=== PATIENT | female | born 1940 | race Caucasian/White ===

== ENCOUNTER 2021-09-13 09:15 | Outpatient (CLI) | payer MEDICARE, SELFPAY ==
--- NOTE | ~2021-09-13 | US_ITS ---
EXAMINATION: US arterial duplex LE DATE: 09/13/2021 11:12 INDICATION: Peripheral vascular disease. TECHNIQUE: Multiple grayscale and Doppler ultrasound images of the bilateral lower limb arteries were obtained. COMPARISON: None FINDINGS: In the right lower limb, the peak systolic velocities measure 123 cm/s in common femoral ar samia, 66 cm/s in profunda femoris artery, 101 cm/s in proximal superficial femoral artery, 76 cm/s in mid superficial femoral artery, 64 cm/s in distal superficial femoral artery, 54 cm/s in popliteal a rtery, 70 cm/s in posterior tibial artery, 64 cm/s in peroneal artery, 66 cm/s in anterior tibial art felicia, and 35 cm/s in dorsalis pedis. In the left lower limb, the peak systolic velocities measure 94 cm/s in common femoral artery, 62 cm/ s in profunda femoris, 77 cm/s in proximal superficial femoral artery, 65 cm/s in mid superficial fem oral artery, 54 cm/s in distal superficial femoral artery, 45 cm/s in popliteal artery, 80 cm/s in po sterior tibial artery, 64 cm/s in peroneal artery, 69 cm/s in anterior tibial artery, and 61 cm/s in dorsalis pedis. IMPRESSION: 1. No significant arterial occlusive disease. Reviewed, dictated and finalized at location A.
== END 2021-09-13 09:16 | disposition home or self-care (01) ==
PROVIDERS: Visit Provider Nurse Practitioner Adult Health
DX: I73.9 Peripheral vascular disease, unspecified (principal)
CPT/HCPCS: 93925

== ENCOUNTER 2021-11-14 09:48 | Outpatient (CLI) | payer MEDICARE, SELFPAY ==
--- NOTE | 2021-11-14 11:00 | NEURO_ITS ---
Impression: # Complains of paresthesia in lower extremities with discoloration. # Normal routine nerve conduction study. # Needle/EMG exam neurogenic though no fibrillation. # Clinical correlation recommended, possibility of higher involvement needs to be ruled out. # Problem could very well be related to small fiber neuropathy. Nerve Conduction Studies Anti Sensory Summary Table Stim Site NR Peak (ms) P-T Amp (?V) Site1 Site2 Delta-P (ms) Dist (cm) [place] (m/s) Left Sup Fibular Anti Sensory (Ant Lat Mall) NO RESPONSE 14 cm NR 14 cm Ant Lat Mall 16.0 Right Sup Fibular Anti Sensory (Ant Lat Mall) 14 cm 3.7 4.9 14 cm Ant Lat Mall 3.7 16.0 43 Left Sural Anti Sensory (Lat Mall) Calf 3.5 9.9 Calf Lat Mall 3.5 16.0 46 Right Sural Anti Sensory (Lat Mall) Calf 3.7 5.3 Calf Lat Mall 3.7 16.0 43 Motor Summary Table Stim Site NR Onset (ms) O-P Amp (mV) Site1 Site2 Delta-0 (ms) Dist (cm) [place] (m/s) Left Peroneal Motor (Vastus Med) Ankle 4.2 0.8 Popit Ankle 8.8 40.0 45 Popit 13.0 0.7 Right Peroneal Motor (Vastus Med) Ankle 4.3 1.2 Popit Ankle 8.0 37.0 46 Popit 12.3 1.2 Left Tibial Motor (Abd Guzman Brev) Ankle 4.7 3.6 Knee Ankle 9.8 41.0 42 Knee 14.5 1.7 Right Tibial Motor (Abd Guzman Brev) Ankle 4.5 2.9 Knee Ankle 8.9 37.0 42 Knee 13.4 1.7 F Wave Studies NR F-Lat (ms) L-R F-Lat (ms) Left Peroneal (Mrkrs) (EDB) 51.41 0.00 Right Peroneal (Mrkrs) (EDB) 51.41 0.00 Left Tibial (Mrkrs) (Abd Hallucis) 51.31 0.92 Right Tibial (Mrkrs) (Abd Hallucis) 52.23 0.92 EMG Side Muscle Nerve Root Ins Act Fibs Amp Dur Recrt Comment Right AntTibialis Dp Br Fibular L4-5 Nml Nml Nml Nml Reduced Right Gastroc Tibial S1-2 Nml Nml Nml Nml Reduced Right Fibularis Long Sup Br Fibular L5-S1 Nml Nml Nml Nml Reduced Right Flex Dig Long Tibial L5-S2 Nml Nml Nml Nml Reduced Right Ext Dig Brev Dp Br Fibular L5, S1 Nml Nml Nml Nml Reduced Left AntTibialis Dp Br Fibular L4-5 Nml Nml Nml Nml Reduced Left Gastroc Tibial S1-2 Nml Nml Nml Nml Reduced Left Fibularis Long Sup Br Fibular L5-S1 Nml Nml Nml Nml Reduced Left Flex Dig Long Tibial L5-S2 Nml Nml Nml Nml Reduced Left Ext Dig Brev Dp Br Fibular L5, S1 Nml Nml Nml Nml Reduced MTDD
== END 2021-11-14 09:49 | disposition home or self-care (01) ==
PROVIDERS: Visit Provider Nurse Practitioner Adult Health
DX: R20.2 Paresthesia of skin (principal)
CPT/HCPCS: 95886; 95910

== ENCOUNTER 2022-03-09 09:50 | Outpatient (CLI) | payer MEDICARE, SELFPAY ==
[2022-03-09 17:27] LABS: Appearance Urine Clear (Clear); Bilirubin Urine Negative (Negative); Blood Urine Negative (Negative); Color Urine Yellow (Yellow); Glucose Urine UA Negative (Negative); Ketones Urine Negative (Negative); Leukocyte Esterase Ur Negative LEU/UL (Negative); Nitrate Urine Negative (Negative); Protein Urine 2+ mg/dL (Negative); Specific Grav Ur 1.025 (1.001-1.035); Urobilinogen Urine 0.2 mg/dL (<2.0); pH Urine 5.5 (5.0-9.0)
[2022-03-09 17:40] LABS: CRP 0.8 mg/dL (<1.0)
[2022-03-09 17:43] LABS: Mucus Urine Rare /lpf; RBC Urine 0-2 /hpf (0-2); WBC Urine 0-3 /hpf
[2022-03-09 17:51] LABS: Erythrocyte Sedimentation Rate 17 mm/hr (0-20)
[2022-03-09 17:53] LABS: Add Urine Microscopic? YES
== END 2022-03-09 09:51 | disposition home or self-care (01) ==
LOC: ANHGOSHLAB 09:51
PROVIDERS: PCP Emergency Medicine; Visit Provider Emergency Medicine
DX: R30.0 Dysuria (principal); L53.9 Erythematous condition, unspecified
CPT/HCPCS: 36415; 81001; 85652; 86140

== ENCOUNTER → 2022-03-09 10:10 | Outpatient (CLI) | payer MEDICARE, SELFPAY ==
--- NOTE | ~2022-03-09 | XR_ITS ---
EXAMINATION: XR tibia fibula LT 2V DATE: 03/09/2022 10:37 INDICATION: Left ankle lumps with skin discolorations. TECHNIQUE: 2 views of the left tibia and fibula were obtained. COMPARISON: None. FINDINGS: Bone alignment is normal. No fracture. There is mild left knee osteoarthritis. IMPRESSION: 1. Mild left knee osteoarthritis. Reviewed, dictated and finalized at location A. K TRIMMER
--- NOTE | ~2022-03-09 | XR_ITS ---
EXAMINATION: XR tibia fibula RT 2V DATE: 03/09/2022 10:37 INDICATION: Right ankle lumps with skin discolorations. TECHNIQUE: 2 views of the right tibia and fibula were obtained. COMPARISON: None. FINDINGS: Bone alignment is normal. No fracture. There is mild right knee osteoarthritis. IMPRESSION: 1. Mild right knee osteoarthritis. Reviewed, dictated and finalized at location A. MACHINE OPERATOR
== END ==
PROVIDERS: PCP Emergency Medicine; Visit Provider Emergency Medicine
DX: M79.89 Other specified soft tissue disorders (principal); M17.0 Bilateral primary osteoarthritis of knee
CPT/HCPCS: 73590

== ENCOUNTER → 2022-03-14 09:06 | Outpatient (CLI) | payer MEDICARE, SELFPAY ==
--- NOTE | ~2022-03-14 | MR_ITS ---
MRI of the brain Clinical History: Headache, paresthesia Technique: Axial and sagittal T1-weighted images were acquired. These were followed by axial T2-weigh bernabe, diffusion weighted, gradient, and FLAIR images. Findings: There is no acute infarct, intracranial hemorrhage, or mass lesion. There are mild chronic white matter changes in the periventricular white matter bilaterally. Ventricles and subarachnoid spaces are unremarkable. Orbits are unremarkable. Paranasal sinuses and m astoid air cells are clear. Major intracranial flow voids are intact. Sagittal midline structures are intact. IMPRESSION: No acute abnormality. Minimal chronic white matter changes. Reviewed, dictated and finalized at location . E BREAKER
== END ==
PROVIDERS: PCP Emergency Medicine; Visit Provider Emergency Medicine
DX: R51.9 Headache, unspecified (principal); R20.2 Paresthesia of skin
CPT/HCPCS: 70551

== ENCOUNTER 2022-11-16 09:23 | Outpatient (CLI) | payer MEDICARE, SELFPAY ==
[2022-11-16 17:15] LABS: Appearance Urine Turbid (Clear); Bacteria Urine None Seen /hpf; Bilirubin Urine Negative (Negative); Blood Urine 1+ (Negative); Color Urine Yellow (Yellow); Glucose Urine UA Negative (Negative); Ketones Urine Negative (Negative); Leukocyte Esterase Ur 3+ LEU/UL (Negative); Nitrate Urine Negative (Negative); Non Pathogenic Casts 0-2; Protein Urine Negative (Negative); RBC Urine 0-2 /hpf (0-2); Specific Grav Ur 1.006 (1.001-1.035); Squamous Epithelial Cell Urine None seen /hpf (Few); Urobilinogen Urine 0.2 mg/dL (<2.0); WBC Urine >100 /hpf
[2022-11-16 17:31] LABS: Add Urine Microscopic? YES
== END 2022-11-16 09:24 | disposition home or self-care (01) ==
LOC: ANHGOSHLAB 09:24
PROVIDERS: PCP Emergency Medicine; Visit Provider Emergency Medicine
DX: R30.0 Dysuria (principal)
CPT/HCPCS: 81001; 87077; 87086; 87088; 87186

== ENCOUNTER 2022-12-13 08:32 | Outpatient (CLI) | payer MEDICARE, SELFPAY ==
[2022-12-13 19:01] LABS: Appearance Urine Clear (Clear); Bacteria Urine None Seen /hpf; Bilirubin Urine Negative (Negative); Blood Urine Negative (Negative); Color Urine Yellow (Yellow); Glucose Urine UA Negative (Negative); Ketones Urine Negative (Negative); Leukocyte Esterase Ur Trace LEU/UL (Negative); Nitrate Urine Negative (Negative); Non Pathogenic Casts 0-2; Protein Urine Negative (Negative); RBC Urine 0-2 /hpf (0-2); Specific Grav Ur 1.009 (1.001-1.035); Squamous Epithelial Cell Urine None seen /hpf (Few); Urobilinogen Urine 0.2 mg/dL (<2.0); WBC Urine 0-5 /hpf; pH Urine 7.5 (5.0-9.0)
[2022-12-13 19:05] LABS: Add Urine Microscopic? YES
[2022-12-13 19:20] LABS: Basophils Percent Auto 0.5 % (0.2-1.2); Eosinophils Absolute Auto 0.1 K/mm3 (0-0.3); Eosinophils Percent Auto 1.6 % (0-4.4); Hematocrit 41.2 % (37.0-47.0); Hemoglobin 13.3 g/dL (12.0-15.0); Lymphocytes Absolute Auto 1.34 K/mm3 (0.9-3.2); Lymphocytes Percent Auto 31.2 % (18.3-44.2); Mean Corpuscular HGB Conc 32.3 g/dl (32-36); Mean Corpuscular Hemoglobin 31.5 pg (26-34); Mean Corpuscular Volume 97.6 fl (80-100); Mean Platelet Volume 10.6 fl (7.4-10.4); Monocytes Absolute Auto 0.4 K/mm3 (0.1-0.6); Monocytes Percent Auto 9.6 % (2.6-8.5); Neutrophils Absolute Auto 2.5 K/mm3 (1.3-6.7); Neutrophils Percent Auto 57.1 % (45.5-73.1); Platelet Count Result 227 k/mm3 (150-375); Red Blood Count 4.22 M/mm3 (4.2-5.4); Red Cell Distribution Width 13.6 % (11.5-14.5); White Blood Count 4.3 K/mm3 (4.5-10.0)
[2022-12-14 08:28] LABS: Hemoglobin A1C 5.3 % (<5.7)
== END 2022-12-13 08:33 | disposition home or self-care (01) ==
PROVIDERS: PCP Emergency Medicine; Visit Provider Emergency Medicine
DX: N39.0 Urinary tract infection, site not specified (principal)
CPT/HCPCS: 36415; 80053; 81001; 83036; 85025

== ENCOUNTER 2023-01-09 09:08 | Outpatient (CLI) | payer MEDICARE, SELFPAY ==
--- NOTE | ~2023-01-09 | MM_ITS ---
EXAMINATION: MM screening javad LT w lela HISTORY: Screening left mammogram, history of right mastectomy TECHNIQUE: Craniocaudal and mediolateral oblique 3-D tomosynthesis images were obtained and synthetic 2-D images were generated. CAD analysis was submitted and interpreted. COMPARISON: 12/08/2021 BREAST PARENCHYMAL COMPOSITION: There are scattered areas of fibroglandular density. FINDINGS: No suspicious mass, calcification, or architectural distortion are identified to suggest ma lignancy. There has been no suspicious interval change. IMPRESSION: 1. No mammographic evidence of malignancy. 2. Recommend routine screening mammography while the patient remains in good health. BI-RADS Category 1: Negative Reviewed, dictated and finalized at location A. NICAL SALES DIRECTOR IMPRESSION: 1. No mammographic evidence of malignancy. 2. Recommend routine screening mammography while the patient remains in good he alth. BI-RADS Category 1: Negative
== END 2023-01-09 09:09 | disposition home or self-care (01) ==
LOC: ANHIMG 09:13
PROVIDERS: PCP Emergency Medicine; Visit Provider Emergency Medicine
DX: Z12.31 Encounter for screening mammogram for malignant neoplasm of breast (principal)
CPT/HCPCS: 77063; 77067

== ENCOUNTER → 2023-02-11 14:26 | Outpatient (CLI) | payer MEDICARE, SELFPAY ==
--- NOTE | ~2023-02-11 | XR_ITS ---
[id number] 02/11/2023 15:18 Indication: Right knee pain Procedure: 2 views right knee Comparison: No prior studies for comparison. Findings: There is moderate tricompartment osteoarthritis. No fracture or traumatic malalignment. No significant joint effusion. No foreign bodies. Impression: 1: Moderate tricompartment osteoarthritis of the right knee. Reviewed, dictated and finalized at location A. OPERATIONS COORDINATOR Impression: 1: Moderate tricompartment osteoarthritis of the right knee.
== END ==
PROVIDERS: PCP Family Medicine; Visit Provider Nurse Practitioner Family
DX: M17.11 Unilateral primary osteoarthritis, right knee (principal)
CPT/HCPCS: 73560

== ENCOUNTER 2023-02-26 14:06 | Outpatient (CLI) | payer MEDICARE, SELFPAY ==
--- NOTE | ~2023-02-26 | US_ITS ---
EXAMINATION: US venous doppler [facility] DATE: 02/26/2023 14:38 INDICATION: Left lower limb swelling TECHNIQUE: Grayscale ultrasound images without and with compression and Doppler ultrasound images of the left lower extremity veins were obtained. COMPARISON: None. FINDINGS: The visualized portions of left common femoral vein, profunda (deep) femoral vein, femoral vein, popl iteal vein, peroneal veins, posterior tibial veins, gastrocnemius vein and greater saphenous vein out flow are patent. Soft tissue swelling with increased echogenicity of the subcutaneous fat with inters persed hypoechoic reticulated pattern consistent with subcutaneous edema at the region of concern at the lateral left lower leg. IMPRESSION: 1. No deep venous thrombosis in the left lower limb. Reviewed, dictated and finalized at location A. MORSE INTERCEPT TECHNICIAN
== END 2023-02-26 14:07 | disposition home or self-care (01) ==
PROVIDERS: PCP Family Medicine; Visit Provider Nurse Practitioner Family
DX: M79.89 Other specified soft tissue disorders (principal)
CPT/HCPCS: 93971

== ENCOUNTER 2023-04-24 10:00 | Outpatient (RCR) | payer MEDICARE, SELFPAY ==
--- NOTE | 2023-02-27 16:49 | PTOPEVAL1 ---
Assessment and note entered by Jhonny Morataya, PT, DPT Evaluation Information Assessment Status Evaluation Diagnosis R knee pain Onset 1 month Subjective Information Pt reports R knee pain, she states it feels like her knee will freeze and it gets hard to move. She states about a month ago she was bending over to pick something up and it froze and it feels like it is still stuck. Reported Pain Level Pain Score 1: Self Report Assessment PT Clinical Summary Anali presents to therapy today for her initial evaluation with a diagnosis of R knee pain. Today she demonstrates gait deviations, decreased knee ROM, decreased BLE strength, and decreased functional mobility. Skilled therapy services are indicated to address the deficits noted above, to manage pain, and to improve functional mobility. Plan of Care Interventions Electrical Stimulation,Gait Training,Hot Pack/Cold Pack,Manual Therapy,Neuro Re-education,Patient/ Caregiver Educati,Therapeutic Activities, Therapeutic Exercise PT Services Indicated Yes Treatment Frequency and 2x/wk for 8 visits Duration These treatments will address the objective and functional deficits as defined above. The patient will be advanced safely and appropriately in order for the patient to progress towards his/her prior level of function. Additional exercises will be introduced and as well as a comprehensive home exercise program upon discharge, if needed, ?to ensure carryover of functional gains achieved in the clinic. This treatment plan has been reviewed and agreement upon by the patient.
--- NOTE | 2023-02-27 16:49 | OPREHPOC ---
Outpatient Therapy Plan of Care This is a Multidisciplinary Plan of Care that may contain components documented by all disciplines (PT, OT, and ST.) PT Problem 1 PT Problem #1 Knowledge Deficit PT Goal 1 Goal Pt to be IND with issued HEP Target Visit 8 PT Problem 2 PT Problem #2 Pain PT Goal 1 Goal Pt to report knee pain no greater than 3/10 in the last week . Target Visit 8 PT Goal 2 Goal Pt to report 75% improvement in overall symptoms. Target Visit 8 PT Problem 3 PT Problem #3 Impaired Gait PT Goal 1 Goal Pt to improve 2 min walk distance from 375ft to 450ft Target Visit 8 PT Goal 2 Goal Pt to ambulate without deviations Target Visit 8 PT Problem 4 PT Problem #4 Impaired Functional Mobil PT Goal 1 Goal Pt to improve 5xSTS time from 27s to 15s. Target Visit 8 PT Goal 2 Goal Pt to demonstrate sit to stand transfer with equal weight distribution Target Visit 8
--- NOTE | 2023-03-04 12:28 | PCPTNOTE ---
Patient called to cancel secondary to in the family.
--- NOTE | 2023-03-06 14:30 | PCPTNOTE ---
Patient canceled due to family emergency.
--- NOTE | 2023-03-13 09:40 | PCPTNOTE ---
Patient cancelled secondary to ill.
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
--- NOTE | 2023-03-27 11:57 | PTOPPROG ---
Assessment and note entered by Jhonny Morataya, PT, DPT Evaluation Information Assessment Status Progress Diagnosis R knee pain Onset 1 month Subjective Information Pt states overall her knee is doing much better, she has been also to sleep in bed for the last 2 nights. Assessment PT Clinical Summary Anali presents to therapy today for her progress report following 6 visits of skilled therapy to treat her diagnosis of R knee pain. Today she demonstrates improve LE strength, gait pattern, gait speed, and LE ROM. She is progressing well towards her therapy goals with active knee flexion still being the most limited at 95 deg. Her HEP was updated this date and she decided to work on her HEP for a month and will follow up in a month. Plan of Care Interventions Electrical Stimulation,Gait Training,Hot Pack/Cold Pack,Manual Therapy,Neuro Re-education,Patient/ Caregiver Educati,Therapeutic Activities, Therapeutic Exercise PT Services Indicated Yes Treatment Frequency and follow up in 1 month Duration These treatments will address the objective and functional deficits as defined above. The patient will be advanced safely and appropriately in order for the patient to progress towards his/her prior level of function. Additional exercises will be introduced and as well as a comprehensive home exercise program upon discharge, if needed, ?to ensure carryover of functional gains achieved in the clinic. This treatment plan has been reviewed and agreement upon by the patient.
--- NOTE | 2023-04-24 10:49 | PTOPDC ---
Assessment and note entered by Jhonny Morataya, PT, DPT Evaluation Information Assessment Status Discharge Diagnosis R knee pain Onset 1 month Subjective Information Pt states her knee has still been doing good in the last month or so. She states her is getting a little bit of clicking sounds but it is not painful. She states she has been walking 1-2 miles and biking 2-3 miles at the gym, 2-3 times a week . She states she increased her biking distance yesterday so is a little sore today. Reported Pain Level Pain Score 3: Self Report Assessment PT Clinical Summary Anali presents to therapy today for her progress report following 7 visits of skilled therapy to treat her diagnosis of R knee pain. Today she reports and demonstrates improved functional mobility and independence. She has met or is progressing well towards her therapy goals and no longer requires skilled services, she will be discharged at this time. Plan of Care PT Services Indicated No
== END 2023-04-24 11:08 | disposition home or self-care (01) ==
LOC: ANHGOSHPT 10:00
PROVIDERS: PCP Family Medicine; Visit Provider Nurse Practitioner Family
DX: M25.561 Pain in right knee (principal)
CPT/HCPCS: 97110; 97112; 97161; 97530

== ENCOUNTER 2023-06-20 11:42 | Emergency (ER) | payer MEDICARE, SELFPAY ==
[2023-06-20 11:58] VITALS: BP 105/76; PULSE 77; RESP 16; TEMP 36.8; O2SAT 100
--- NOTE | 2023-06-20 11:59 | ED.GENADULT ---
HPI - General Adult General Chief complaint: Extremity Problem,Nontraumatic Stated complaint: L LEG REDNESS Source: patient, RN notes reviewed and old records reviewed Mode of arrival: ambulatory Limitations: no limitations History of Present Illness HPI narrative: [age] year female presents to [facility] with complaints pain and redness to lower left leg. Patient states noted area last p.m. an area is worsening. Patient has not taken anything or tried anything for pain or redness. Related Data Allergies Allergy/AdvReac Type Severity Reaction Status Date / Time No Known Allergies Allergy Verified 02/11/23 13:48 Review of Systems Constitutional: Constitutional: Reports no additional constitutional complaints, Denies body ache(s), Denies chills, Denies fatigue, Denies fever(s) and Denies headache(s) Eyes: Eyes: Reports no additional eye complaints and Denies blurry vision ENT: Reports system reviewed and no additional complaints, except as documented, Denies vertigo, Denies dizziness, Denies ear discharge, Denies otalgia, Denies facial pain, Denies headache(s), Denies nasal congestion, Denies nasal discharge, Denies sinus pain, Denies sinus pressure and Denies sore throat Cardiovascular: Cardiovascular: Reports no additional cardiovascular complaints, Denies chest pain, Denies chest pain at rest, Denies rapid heart rate and Denies dyspnea Respiratory: Respiratory: Reports no additional respiratory complaints, Denies chest congestion, Denies cough, Denies pain on inspiration, Denies pain with cough and Denies dyspnea Gastrointestinal: Gastrointestinal: Denies abdominal pain, Denies diarrhea, Denies nausea and Denies vomiting Integumentary/Breasts: Skin/Breast: Reports change in pigmentation, Denies rash and Reports skin pain Neurologic: Reports system reviewed and no additional complaints, except as documented, Denies vertigo, Denies dizziness and Denies headache(s) Endocrine: Endocrine: Denies fatigue PMFSH Past Medical History Medical History Breast CA Cancer Osteoporosis Family History Family History Other Alcohol abuse Cerebrovascular accident Depression Heart disease Hypertension Social History Social History Social History: Caffeine- coffee Smoking status: Never smoker Second hand tobacco smoke exposure: No Alcohol intake: never Substance use: never Substance use type: does not use Lack of Transportation: No Lack of Food: Never True Current Housing: I Have Housing Concerned About Future Housing: No Difficulty Paying Gas/Electric Bills: No Difficulty Paying for Meds: No Currently Unemployed: No Difficulty w/ Childcare or Family Care: No Occupation/Education: retired Gender identity (if verbalized by the patient): Female Sexual Orientation (if Verbalized by the Patient): Straight or Heterosexual Comments At the time of my signature, I reviewed and agree with the nursing past medical, surgical, social, and family history. There is no relevant family history pertinent to the patient complaint. Exam Const: General: cooperative, healthy appearing, no acute distress and well nourished Nutritional Appearance: well nourished Orientation/consciousness: patient oriented x3 Limitations: no limitations HENMT: Head: normal to inspection and normocephalic Ears: external ears normal Face/Nose/Sinus: normal facial exam Face and sinus: normal facial exam Mouth: Yes Normal oral and palatal mucosa present, Yes oropharynx normal and Yes moist mucous membranes Eyes: General: appearance normal, both eyes and all related structures Sclera: sclerae normal Pupils: Equal, round and reactive pupils present Resp: Effort & Inspection: normal respiratory effort, able to speak in complete sentences, no audible wheezes,
== END 2023-06-20 12:17 | disposition home or self-care (01) ==
PROVIDERS: Emergency Provider Registered Nurse; PCP Emergency Medicine
DX: L03.116 Cellulitis of left lower limb (principal); L02.416 Cutaneous abscess of left lower limb; M81.0 Age-related osteoporosis without current pathological fracture; Z85.3 Personal history of malignant neoplasm of breast
CPT/HCPCS: 99213; G0463

== ENCOUNTER 2023-10-07 10:17 | Emergency (ER) | payer MEDICARE, SELFPAY ==
--- NOTE | 2023-10-07 10:24 | ED.EXTPRO ---
HPI - Extremity Problem General Chief complaint: Skin/Abscess/Foreign Body Stated complaint: Cellulitis Left Leg Time Seen by Provider: 10/07/23 11:00 Source: patient Mode of arrival: ambulatory Limitations: no limitations History of Present Illness HPI Narrative: Anali is an 83-year-old female patient presenting to the clinic today with complaints of possible left lower leg cellulitis. She reports she has had cellulitis in the past and was seen here and given cephalexin and that resolved her symptoms. She tried to get into her doctor today however her doctor is not in the office. She reports that symptoms started yesterday. [place] like she had fever last night. Is having pain to the left medial leg with redness and swelling. Has taken Tylenol for the pain and fever. She is afebrile in the clinic today. Related Data Home Medications Medication Instructions Recorded Confirmed sulfamethoxazole 800 1 tablet PO BID 10/07/23 10/07/23 mg-trimethoprim 160 mg tablet Allergies Allergy/AdvReac Type Severity Reaction Status Date / Time No Known Allergies Allergy Verified 10/07/23 10:55 Review of Systems Review of Systems: Pertinent positives per HPI. Patient denies any rash, headache, visual changes, dizziness, cough, runny nose, sore throat, shortness of breath, chest pain, palpitations, nausea, vomiting, diarrhea, constipation, abdominal pain, or any urinary issues. [facility] Past Medical History Medical History Breast CA Cancer Osteoporosis Family History Family History Other Alcohol abuse Cerebrovascular accident Depression Heart disease Hypertension Social History Social History Social History: Caffeine- coffee Smoking status: Never smoker Second hand tobacco smoke exposure: No Alcohol intake: never Substance use: never Substance use type: does not use Lack of Transportation: No Lack of Food: Never True Current Housing: I Have Housing Concerned About Future Housing: No Difficulty Paying Gas/Electric Bills: No Difficulty Paying for Meds: No Currently Unemployed: No Difficulty w/ Childcare or Family Care: No Occupation/Education: retired Gender identity (if verbalized by the patient): Female Sexual Orientation (if Verbalized by the Patient): Straight or Heterosexual Comments At the time of my signature, I reviewed and agree with the nursing past medical, surgical, social, and family history. There is no relevant family history pertinent to the patient complaint. Exam Narrative: General: Well-developed, well nourished, in no apparent distress Head: Normocephalic, atraumatic. Cardio: Regular rate and rhythm, s1 and s2 normal, no murmur appreciated. Resp: Clear to auscultation bilaterally, no rhonchi, rales, wheezing or rubs. Musculoskeletal: No deformity, redness and swelling to the left lower medial leg just above the ankle with erythema and tender to palpation, no obvious wound or drainage, mild nonpitting edema, grossly normal range of motion, muscle strength strong and equal, peripheral pulse strong, no cyanosis, normal gait and station Course Course Emergency Course: Portions of this record may have been created with voice recognition software. Level of Care: Express Care Visit Vital Signs Vital signs: Vital signs reviewed MDM - Extremity (Nontraumatic) MDM Narrative Medical decision making narrative: At the time of visit patient is resting comfortably on the exam table. Patient appears to be nontoxic. Plan: I suspect patient has cellulitis to the left lower leg. Prescription for cephalexin is sent being sent to the pharmacy. Patient is currently on Bactrim for UTI. Will have her continue that as well. Supportive measures were discussed with the patient and they vo
[2023-10-07 10:55] VITALS: BP 121/64; PULSE 79; RESP 16; TEMP 35.8; O2SAT 100
== END 2023-10-07 11:13 | disposition home or self-care (01) ==
PROVIDERS: Emergency Provider Nurse Practitioner Family; PCP Emergency Medicine
DX: L03.116 Cellulitis of left lower limb (principal); M81.0 Age-related osteoporosis without current pathological fracture; Z85.3 Personal history of malignant neoplasm of breast
CPT/HCPCS: 99213; G0463

== ENCOUNTER 2023-10-14 13:54 | Outpatient (NON) | payer MEDICARE, SELFPAY | END 2023-10-14 13:55 | disposition home or self-care (01) | PROVIDERS: PCP Student in an Organized Health Care Education/Training Program; Visit Provider Student in an Organized Health Care Education/Training Program | DX: N39.0 Urinary tract infection, site not specified (principal) | CPT/HCPCS: 87086 ==

== ENCOUNTER 2023-12-23 08:12 | Outpatient (CLI) | payer MEDICARE, SELFPAY ==
[2023-12-23 14:22] LABS: Basophils Percent Auto 0.7 % (0.2-1.2); Eosinophils Absolute Auto 0.1 K/mm3 (0-0.3); Eosinophils Percent Auto 1.7 % (0-4.4); Hematocrit 42.1 % (37.0-47.0); Hemoglobin 13.3 g/dL (12.0-15.0); Immature Granulocyte Absolute 0.01 K/mm3 (0.00-0.031); Immature Granulocyte Percent A 0.2 % (0-0.5); Mean Corpuscular HGB Conc 31.6 g/dl (32-36); Mean Corpuscular Hemoglobin 31.3 pg (26-34); Mean Corpuscular Volume 99.1 fl (80-100); Mean Platelet Volume 10.2 fl (7.4-10.4); Monocytes Absolute Auto 0.5 K/mm3 (0.1-0.6); Monocytes Percent Auto 11.3 % (2.6-8.5); Neutrophils Absolute Auto 2.8 K/mm3 (1.3-6.7); Neutrophils Percent Auto 60.1 % (45.5-73.1); Platelet Count Result 221 k/mm3 (150-375); Red Blood Count 4.25 M/mm3 (4.2-5.4); Red Cell Distribution Width 13.5 % (11.5-14.5); White Blood Count 4.6 K/mm3 (4.5-10.0)
[2023-12-23 15:36] LABS: Alanine Aminotransferase 18 U/L (6-35); Albumin Level 4.1 g/dL (3.5-5.1); Alkaline Phosphatase 90 U/L (38-126); Anion Gap 6 mmol/L (4-12); Aspartate Amino Transferase 47 U/L (14-36); Bilirubin,Total 0.3 mg/dL (0.2-1.3); Blood Urea Nitrogen 15 mg/dL (7-17); Carbon Dioxide 30 mmol/L (22-30); Chloride 104 mmol/L (98-107); Estimated Glomerular Filt Rate > 60; Glucose 87 mg/dL (65-110); Potassium 4.3 mmol/L (3.4-5.0); Sodium 140 mmol/L (137-145)
[2023-12-23 16:30] LABS: Vitamin B12 > 1000.0 pg/mL (239-931)
== END 2023-12-23 08:13 | disposition home or self-care (01) ==
PROVIDERS: PCP Student in an Organized Health Care Education/Training Program; Visit Provider Student in an Organized Health Care Education/Training Program
DX: R53.83 Other fatigue (principal); E55.9 Vitamin D deficiency, unspecified
CPT/HCPCS: 36415; 80053; 82306; 82607; 84443; 85025

== ENCOUNTER 2024-02-18 10:25 | Outpatient (CLI) | payer MEDICARE, SELFPAY ==
--- NOTE | ~2024-02-18 | MM_ITS ---
EXAMINATION: MM screening javad LT w lela HISTORY: Screening TECHNIQUE: Craniocaudal and mediolateral oblique 3-D tomosynthesis images were obtained and synthetic 2-D images were generated. CAD analysis was submitted and interpreted. COMPARISON: 12/08/2021 BREAST PARENCHYMAL COMPOSITION: The breasts are heterogeneously dense, which may obscure small masses . FINDINGS Stable parenchymal pattern without suspicious microcalcifications, architectural distortion, discrete masses or significant asymmetry. IMPRESSION: 1. No mammographic evidence of malignancy. 2. Recommend routine screening mammography in one year. BI-RADS Category 1: Negative Reviewed, dictated and finalized at location A. BORING CREW CHIEF
--- NOTE | ~2024-02-18 | DEXA_ITS ---
Bone Density Report Name: DIMA DURANT Age: 83 Sex: Female Ethnicity: White Date of : 1940 Indication: postmenopausal; screening for osteoporosis; height loss; Referring Provider: ANNA CALLES Study: Bone densitometry was performed. Exam Date: February 18, 2024 Accession number: [id number] Bone Density: Region BMD T-score Z-score Classification AP Spine(L1-L4) 0.754 -2.7 0.1 Osteoporosis Femoral Neck (Left) 0.517 -3.0 -0.6 Osteoporosis Total Hip (Left) 0.673 -2.2 -0.1 Osteopenia Femoral Neck (Right) 0.562 -2.6 -0.2 Osteoporosis Total Hip (Right) 0.713 -1.9 0.3 Osteopenia Femoral Neck Mean 0.539 -2.8 -0.4 Osteoporosis Total Hip Mean 0.693 -2.0 0.1 Osteopenia World Health Organization criteria for BMD impression classify patients as: Normal (T-score at or above -1.0), Osteopenia (T-score between -1.0 and -2.5), or Osteoporosis (T-score at or below -2.5). 10-year Fracture Risk: FRAX not reported because: Some T-score for Spine Total or Hip Total or Femoral Neck at or below -2.5 Clinical Information Provided by Patient: Has used the following medications: Vitamin D, Calcium Patient maximum height was 64 Menopause Age: 52 No regular weight bearing exercise Does not regularly consume dairy products Drinks caffeinated beverages Onset of menses at age 14 Number of children 2 Impression: The patient has osteoporosis, based on the Left Femoral Neck T-score. Discussion: INCREASED RISK OF FRACTURE. BONE DENSITY IS UNDESIRABLY LOW AT ONE OR MORE SKELETAL SITES, CONSISTENT WITH POSTMENOPAUSAL OSTEOPOROSIS. This patient's lowest T-score meets the World Health Organization's (WHO) criteria for osteoporosis at one or more sites (T-score -2.5 or below). In untreated patients, the risk of osteoporotic fracture increases approximately two-fold for each 1.0 SD decrease in T-score. Low bone density is not the only risk factor for fracture; also consider factors such as patient's age, frailty or poor health, risk of falling, risk of injury, previous osteoporotic fracture, family history of osteoporosis, cigarette smoking, low body weight, etc. Not everyone with low bone mineral density has osteoporosis; osteomalacia and other metabolic bone disorders should also be considered. Patients who have osteoporosis should be evaluated for specific diseases and conditions (secondary causes) that may cause or contribute to bone loss. The [place] Association of Clinical Endocrinologists (AACE) and National Osteoporosis Foundation (NOF) recommend pharmacologic intervention for all postmenopausal women whose T-score is in this range. The patient should follow a healthful lifestyle (good nutrition with adequate calcium and vitamin D, and appropriate weight-bearing exercise). Follow-Up: Consider a repeat BMD and Vertebral Fracture Assessment (VFA) exam in 2 years or sooner if medically necessary, to reassess this patient's status. Reported by: DEVYN on 02/18/2024 10:45:00 AM. Reviewed, dictated and finalized at location A.
--- OUTSIDE RECORDS SUMMARY | 2024-02-25 21:26 | XMS_ITS | Referral Summary ---
Author Organization [facility] at the [facility] Office Center Address [address] [place] [address] Care Team Providers Care Forensic Photographer Name Role Phone Carlin Dolan MD Primary Care Provider [phone] Allergies No known active allergies Medications No known medications Active Problems Problem Noted Date Diagnosed Date Pain of left lower leg 11/25/2023 Assessment & Plan (11/25/2023 3:01 PM CDT): No evidence of PVD of the lower extremities as she has palpable pulses. I suspect majority of her symptoms may be due to her history of prior chemotherapy as majority of her symptoms sound to be neuropathy. Can follow up with me as needed. Social History Tobacco Use Types Packs/Day Years Used Date Smoking Tobacco: Unknown Tobacco Cessation:Counseling Given: Not Answered Personal Safety Answer Date Recorded Getting School Help Needed Not on file 10/14 Comments Unknown Sex and Gender Information Value Date Recorded Sex Assigned at Not on file Legal Sex Female 9:26 AM CDT Gender Identity Not on file Sexual Orientation Not on file Last Filed Vital Signs Vital Sign Reading Time Taken Comments Blood Pressure 145/82 11/20/2023 10:53 AM CDT Pulse 58 11/20/2023 10:53 AM CDT Temperature - - Respiratory Rate - - Oxygen Saturation 96% 11/20/2023 10:53 AM CDT Inhaled Oxygen Concentration - - Weight - - Height - - Body Mass Index - - Plan of Treatment Not on file Insurance MEDICARE SOLUTIONS [facility] MEDICARE Address: [facility] [address] [place] [address] Care Teams Forensic Photographer Relationship Specialty Start Date End Date Carlin Dolan MD [address] [place] [address] [address] [place] [address] PCP - General Family Medicine 10/15/23
--- OUTSIDE RECORDS SUMMARY | 2024-02-25 21:26 | XMS_ITS | Clinical Summary ---
Author Organization [facility] at the [facility] Office Center Address [address] [place] [address] Care Team Providers Care Patient Centered Care Specialist Name Role Phone Carlin Dolan MD Primary Care Provider [phone] Allergies No known active allergies Medications No [...] on file Sexual Orientation Not on file Obstetrics History Last Filed Vital Signs Vital Sign Reading Time Taken Comments Blood Pressure 145/82 11/20/2023 10:53 AM CDT Pulse 58 11/20/2023 10:53 AM CDT Temperature - - Respiratory Rate - - Oxygen Saturation 96% 11/20/2023 10:53 AM CDT Inhaled Oxygen Concentration - - Weight - - Height - - Body Mass Index - - Plan of Treatment Health Maintenance Due Date Last Done Comments Depression Screening 1940 Fall Risk Assessment 1940 Osteoporosis Screening-Bone Density Scan 1940 DTaP/Tdap/Td Vaccine (1 - Tdap) 1953 Hepatitis B Screening 1960 Zoster Vaccine (1 of 2) 1992 Pneumococcal vaccine 65+ (1 of 1 - PCV) 07/25/2007 Well Visit 65+ 07/25/2007 Covid-19 Vaccine (3 - season) 2023, 04/07/2021 Influenza Vaccine (#1) 2023 3, 03/09/2022, 12/27/2020 Insurance MEDICARE SOLUTIONS Care Teams Patient Centered Care Specialist Relationship Specialty Start Date End Date Carlin Dolan MD [address] [facility] [address] [place] [address] PCP - General Family Medicine 10/15/23
--- OUTSIDE RECORDS SUMMARY | 2024-02-25 21:26 | XMS_ITS | Encounter Summary ---
Author Organization [facility] Healthcare Address [address] [place] [address] Care Team Providers Care Traffic Incident Management Manager Name Role Phone Carlin Dolan MD Primary Care Provider [phone] Reason for Visit * Reason Comments Peripheral Vascular Disease * Consultation (Routine) - Closed Specialty Diagnoses / Procedures Referred By Contac t Referred To Contact Vascular Surgery Diagnoses Right calf pain Pain of left lower leg Edgar Menendez MD [address] [place] [address] Phone: tel: fax: [facility] at [address] [address] Phone: tel: fax: Referral ID Status Reason Start Date Expiration Date V isits Requested Visits Authorized [id number] Closed Specialty Services Required 10/15/2023 11/13/2024 1 1 Encounter Details Date Type Department Care Team (Late st Contact Info) Description 11/20/2023 10:00 AM CDT Office Visit [facility] at [address] [address] Edgar Menendez MD [address] [facility] [address] [place] [address] Pain of left lower leg (Primary Dx); Right calf pain Social History Tobacco Use Types Packs/Day Years Used Date Smoking Tobacco: Unknown Tobacco Cessation:Counseling Given: Not Answered Personal Safety Answer Date Recorded Getting School Help Needed Not on file 10/14 Comments Unknown Sex and Gender Information Value Date Recorded Sex Assigned at Not on file Legal Sex Female 9:26 AM CDT Gender Identity Not on file Sexual Orientation Not on file documented as of this encounter Last Filed Vital Signs Vital Sign Reading Time Taken Comments Blood Pressure 145/82 11/20/2023 10:53 AM CDT Pulse 58 11/20/2023 10:53 AM CDT Temperature - - Respiratory Rate - - Oxygen Saturation 96% 11/20/2023 10:53 AM CDT Inhaled Oxygen Concentration - - Weight - - Height - - Body Mass Index - - documented in this encounter Progress Notes * Edgar Menendez MD - 11/20/2023 10:00 AM CDT Images from the original note were not included. [facility] Patient ID: Anali Luz is a 83 y.o. female Visit Date: 11/20/2023 Chief Complaint Chief Complaint Patient presents with Peripheral Vascular Disease HPI Anali Luz is a 83 y.o. female w/ a history of breast cancer status post chemotherapy seen inthe office for evaluation of bilateral extremity leg pain. Predominantly her symptoms are numbness and tingling of the lower extremities. Patient has had episodes of cellulitis which required antibiotic therapy, endorses some mild edema to the lower extremities however no significant edema. Denies any pain in the legs with ambulation specifically no pain in the calf thighs or buttocks with ambulation. Antiplatelets/Anticoagulants (and reason): - none Previous vascular surgery interventions, including date (surgery, angio,etc): - none Past medical history: Breast cancer Past surgical history: The patient denies any prior surgery Family history: Hypertension Social History Tobacco Use Smoking status: Unknown Smokeless tobacco: None Substance and Sexual Activity Drug use: None Sexual activity: None Alcohol Use: Not on file ROS Constitutional: No change in appetite. No recent weight loss. No fevers chills or sweats. HEENT: No trouble swallowing. No tinnitus. Eyes: No visual disturbances Respiratory: No shortness of breath. No cough or sputum production. No wheezing. Cardiovascular: No chest pain. No palpitations. Gastrointestinal: No abdominal pain. No nausea vomiting or diarrhea. Genitourinary: No dysuria. No hematuria. Extremities: No claudication. No rest pain. No lower extremity ulcerations or infections. No significant edema. Musculoskeletal: No joint pains. No back pain. Neurologic: No dizziness. No syncope. No weakness. Skin: No rashes. No discoloration. Hematologic: no bleeding Psychiatric: no anxiety, no behavioral changes, no mood swings PE Constitutional: Alert and oriented HEENT: Head atraumatic and normocephalic Neck is supple No carotid bruits Extraocular movements full, sclerae anicteric Chest: Effort normal. Breath sounds normal. Cardiovascular: S1 and S2 are normal. No murmurs rubs or gallops appreciated. Abdominal: Soft, nontender, no masses. Extremities/Vascular: Mild lipodermatosclerosis to bilateral shins. Bilateral DP PT pulses. Musculoskeletal: Normal range of motion. Neurologic: Cranial nerves 2-12 intact. Strength and sensation intact bilaterally. Skin: Warm and dry. No rashes. No discoloration. Psychiatric: Normal mood and affect. Behavior normal. Judgment normal. IMAGING STUDIES Diagnoses and all orders for this visit: Pain of left lower leg (Primary) Assessment & Plan: No evidence of PVD of the lower extremities as she has palpable pulses. I suspect majority of her symptoms may be due to her history of prior chemotherapy as majority of her symptoms sound to be neuropathy. Can follow up with me as needed. Orders: - Ambulatory referral to Vascular Surgery Right calf pain - Ambulatory referral to Vascular Surgery MD Edgar Cox MD This note was generated in part or in whole with voice recognition software. Voice recognition is usually quite accurate but there are annealer errors that can and often occur. All attempts weremade to correct these errors. I apologize for any typographical errors that were not detected and corrected. documented in this encounter Miscellaneous Notes * Assessment & Plan Note - Edgar Menendez MD - 11/25/2023 3:01 PM CDTAssociated Problem(s): Pain of left lower leg No evidence of PVD of the lower extremities as she has palpable pulses. I suspect majority of her symptoms may be due to her history of prior chemotherapy as majority of her symptoms sound to be neuropathy. Can follow up with me as needed. documented in this encounter Plan of Treatment Not on file documented as of this encounter Visit Diagnoses Diagnosis Pain of left lower leg- Primary Right calf pain documented in this encounter Orders Outpatient Referral Count Last Ordered Date Fir st Ordered Date AMB REFERRAL TO VASCULAR SURGERY 1 11/20/19 documented in this encounter Care Teams Traffic Incident Management Manager Relationship Specialty Start Date End Date Carlin Dolan MD [address] [facility] [address] [place] [address] PCP - General Family Medicine 10/15/23 documented as of this encounter
== END 2024-02-18 10:26 | disposition home or self-care (01) ==
PROVIDERS: PCP Student in an Organized Health Care Education/Training Program; Visit Provider Student in an Organized Health Care Education/Training Program
DX: Z12.31 Encounter for screening mammogram for malignant neoplasm of breast (principal); Z78.0 Asymptomatic menopausal state
CPT/HCPCS: 77063; 77067; 77080

== ENCOUNTER 2024-11-23 10:27 | Outpatient (NON) | payer MEDICARE, SELFPAY ==
--- OUTSIDE RECORDS SUMMARY | 2024-11-23 11:04 | XMS_ITS | Clinical Summary ---
Author Organization [facility] at the [facility] Office Center Address [address] [place] [address] Care Team Providers Care Juice Weigher Name Role Phone Carlin Dolan MD Primary Care Provider [phone] Allergies No known active allergies Medications No [...] - Tdap) 1951 Hepatitis B Screening 1960 Pneumococcal vaccine 65+ (1 of 1 - PCV) 1992 Zoster Vaccine (1 of 2) 1992 Well Visit 65+ 07/25/2007 Covid-19 Vaccine (3 - season) 2024, 04/07/2021 Influenza Vaccine (#1) 2024 3, 03/09/2022, 12/27/2020 Insurance [facility] MEDICARE ADVANTAGE Care Teams Juice Weigher Relationship Specialty Start Date End Date Carlin Dolan MD [address] [facility] [address] [place] [address] PCP - General Family Medicine 10/15/23
== END 2024-11-23 10:28 | disposition home or self-care (01) ==
LOC: ANHGOSHLAB 10:28
PROVIDERS: PCP Family Medicine; Visit Provider Student in an Organized Health Care Education/Training Program
DX: R39.9 Unspecified symptoms and signs involving the genitourinary system (principal)
CPT/HCPCS: 87086

== ENCOUNTER 2024-11-27 15:08 | Outpatient (CLI) | payer MEDICARE, SELFPAY ==
--- OUTSIDE RECORDS SUMMARY | 2024-11-27 15:11 | XMS_ITS | Clinical Summary ---
Author Organization [facility] at the [facility] Office Center Address [address] [place] [address] Care Team Providers Care Biomedical Engineer Name Role Phone Carlin Dolan MD Primary Care Provider [phone] Allergies No known active allergies Medications No [...] Vaccine (#1) 2024 3, 03/09/2022, 12/27/2020 Insurance [facility] MEDICARE ADVANTAGE [facility] Address: [facility] [address] [place] [address] Care Teams Biomedical Engineer Relationship Specialty Start Date End Date Carlin Dolan MD [address] [facility] [address] [place] [address] PCP - General Family Medicine 10/15/23
[2024-11-27 18:18] LABS: Hematocrit 41.7 % (37.0-47.0); Hemoglobin 13.5 g/dL (12.0-15.0); Immature Granulocyte Percent A 0.4 % (0-0.5); Lymphocytes Absolute Auto 1.27 K/mm3 (0.9-3.2); Mean Corpuscular HGB Conc 32.4 g/dl (32-36); Mean Corpuscular Hemoglobin 31.0 pg (26-34); Mean Corpuscular Volume 95.6 fl (80-100); Nucleated Red Blood Cells Absolute Auto 0.000 K/mm3 (0.0-0.012); Nucleated Red Blood Cells Perc 0.0 % (0.0-0.2); Platelet Count Result 212 k/mm3 (150-375); Red Blood Count 4.36 M/mm3 (4.2-5.4); White Blood Count 7.1 K/mm3 (4.5-10.0)
[2024-11-27 18:22] LABS: Alanine Aminotransferase 18 U/L (6-35); Albumin Level 4.2 g/dL (3.5-5.1); Alkaline Phosphatase 125 U/L (38-126); Anion Gap 5 mmol/L (4-12); Aspartate Amino Transferase 39 U/L (14-36); Bilirubin,Total 0.2 mg/dL (0.2-1.3); Blood Urea Nitrogen 18 mg/dL (7-17); Calcium 9.4 mg/dL (8.4-10.2); Carbon Dioxide 31 mmol/L (22-30); Chloride 101 mmol/L (98-107); Estimated Glomerular Filt Rate > 60; Glucose 98 mg/dL (65-110); Potassium 4.4 mmol/L (3.4-5.0); Sodium 137 mmol/L (137-145); Total Protein 7.3 g/dL (6.3-8.2)
[2024-11-27 18:57] LABS: Thyroid Stimulating Hormone 1.750 uIU/mL (0.465-4.680)
[2024-11-27 19:21] LABS: Vitamin B12 > 1000.0 pg/mL (239-931)
== END 2024-11-27 15:09 | disposition home or self-care (01) ==
LOC: ANHGOSHLAB 15:09
PROVIDERS: PCP Family Medicine; Visit Provider Student in an Organized Health Care Education/Training Program
DX: K92.1 Melena (principal); R53.83 Other fatigue; E55.9 Vitamin D deficiency, unspecified
CPT/HCPCS: 36415; 80053; 82306; 82607; 84443; 85025

== ENCOUNTER 2024-12-07 09:35 | Outpatient (CLI) | payer MEDICARE, SELFPAY ==
--- NOTE | ~2024-12-07 | CT_ITS ---
EXAMINATION: CT abdomen pelvis wo deny, 12/07/2024 9:35 CDT HISTORY: weakness, constipation, abdomen fullness COMPARISON: No comparisons available. TECHNIQUE: CT scan of the abdomen and pelvis was performed without IV contrast. One or more of the following dose reduction techniques were used: automated exposure control, adjustment of the mA and/or kV according to patient size, use of iterative reconstruction technique. Unless otherwise stated, incidental findings do not require dedicated follow up imaging FINDINGS: CT abdomen: LUNG BASES: The lung bases are clear. The visualized portions of the heart and pericardium are unremarkable. LIVER: Unremarkable, liver contours intact, no lesions. SPLEEN: Unremarkable, no splenomegaly. KIDNEYS: Right Kidney: Right kidney lower pole 2 mm calculus, no hydronephrosis or hydroureter. Left Kidney: Left kidney renal calculi protocol 2 mm, no hydronephrosis or hydroureter. ADRENAL GLANDS: Unremarkable. PANCREAS: Moderate pancreatic atrophy. GALLBLADDER/BILIARY: Gallbladder is contracted with minimal cholelithiasis. STOMACH AND ESOPHAGUS: Visualized stomach and esophagus within normal limits. BOWEL/MESENTERY: Moderate fecal content, no colitis or diverticulitis. Appendix normal. Mesentery normal. No thickened or dilated loops of small bowel. ADENOPATHY/RETROPERITONEUM: No lymphadenopathy. AORTA/VASCULATURE: Normal caliber aorta. FREE FLUID OR FREE AIR: None. CT pelvis: SOLID ORGANS/REPRODUCTIVE: Unremarkable. BLADDER: Within normal limits. OSSEOUS STRUCTURES: No acute osseous abnormality.No suspicious lesions. OVERLYING SOFT TISSUES: Postsurgical changes abdominal wall. IMPRESSION: 1. No etiology to explain the patient's symptoms. 2. Bilateral renal calculi. No hydronephrosis. Reviewed, dictated and finalized at location P.
== END 2024-12-07 09:36 | disposition home or self-care (01) ==
LOC: MICIMG 09:36
PROVIDERS: PCP Family Medicine; Visit Provider Student in an Organized Health Care Education/Training Program
DX: R19.8 Other specified symptoms and signs involving the digestive system and abdomen (principal); N20.0 Calculus of kidney
CPT/HCPCS: 74176

== ENCOUNTER 2024-12-09 03:15 | Day surgery (SDC) | payer MEDICARE, SELFPAY ==
[2024-12-01 14:14] VITALS: BMI 23.0
--- OUTSIDE RECORDS SUMMARY | 2024-12-09 03:19 | XMS_ITS | Clinical Summary ---
Author Organization [facility] at the [facility] Office Center Address [address] [place] [address] Care Team Providers Care Car Cleaner Name Role Phone Carlin Dolan MD Primary Care Provider [phone] Allergies No known active allergies Medications No [...] Vaccine (#1) 2024 3, 03/09/2022, 12/27/2020 Insurance [facility] MEDICARE ADVANTAGE [facility] Address: [facility] [address] [place] [address] Care Teams Car Cleaner Relationship Specialty Start Date End Date Carlin Dolan MD [address] [facility] [address] [place] [address] PCP - General Family Medicine 10/15/23
--- NOTE | 2024-12-09 07:08 | WPDANESEPPF ---
Anes - Initial Pre Proc Eval Procedure: Operation Date: 12/09/24 09:00 Proposed Procedures p Diagnostic Colonoscopy - Gabe Shirley MD Date/Time: 12/09/24 07:08 Surgeon: Gabe Shirley MD Pre Op Diagnosis: Melena Patient Data Age: 84 Gender: F Height: 1.59 m Weight: 58 kg Allergies Allergy/AdvReac Type Severity Reaction Status Date / Time chemical smells Allergy Intermediate Itching Uncoded 12/21/24 12:50 Home Medications ?Medication ?Instructions ?Recorded ?Confirmed ?Type clobetasol 0.05 % scalp solution topical PRN Dry Scalp 11/27/24 12/21/24 History clobetasol 0.05 % shampoo topical PRN Dry Scalp 11/27/24 12/21/24 History clobetasol 0.05 % topical cream 1 applic topical DAILY PRN Dry 11/27/24 12/21/24 History Scalp mupirocin 2 % topical ointment 1 applic topical BID PRN Dry Scalp 11/27/24 12/21/24 History Patient hx anesthesia problems: none Family hx anesthesia problems: none Results Review: All pre-operative results and documents have been reviewed as part of the pre-operative evaluation. [facility] Past Medical History Medical History (Updated 12/31/24 @ 08:15 by Alvarado Dominguez APRN) Screening mammogram for breast cancer Breast CA Cancer Osteoporosis Family History Family History Other Alcohol abuse Cerebrovascular accident Depression Heart disease Hypertension Social History Social History (Updated 12/21/24 @ 10:55 by Maisha Bryan CMA) Social History: Caffeine- coffee Smoking status: Never smoker Second hand tobacco smoke exposure: No Alcohol intake: never Substance use: never Substance use type: does not use Do You Feel Safe in your Home?: Yes Lack of Transportation: No Lack of Food: Never True Current Housing: I Have Housing Concerned About Future Housing: No Difficulty Paying Gas/Electric Bills: No Difficulty Paying for Meds: No Currently Unemployed: No Difficulty w/ Childcare or Family Care: No Living arrangements: with family Occupation/Education: retired Gender identity (if verbalized by the patient): Female Sexual Orientation (if Verbalized by the Patient): Straight or Heterosexual Spiritual care concerns: No Anes - Eval Final PreProcedure Day of Procedure 12/09/24 07:08 Patient weight: normal Heart: regular rate and rhythm Lungs: clear to auscultation and normal air movement Airway: Mallampati scale class II Neurological: alert and oriented Last oral intake: >/= 8 hours ASA classification: II Emergent: no Anesthetic plan: proceed Anesthesia type and monitoring: general GIVS and standard monitoring Results Review: All pre-operative results and documents have been reviewed as part of the pre-operative evaluation. Informed Consent: The patient's anesthetic plan and its attendant risks and benefits were discussed with the patient/family/POA. Questions were solicited and answers provided to the satisfaction of the patient/family/POA.
[2024-12-09 08:20] VITALS: BP 125/67; PULSE 76; RESP 16; TEMP 36.2; O2SAT 99
[2024-12-09] MEDS: LACTATED RINGERS 1,000 ML 150 ML IV CONT (08:30)
--- NOTE | 2024-12-09 08:56 | PM.HPGS ---
History of Present Illness History of Present Illness Consent: Risks, benefits, and alternatives have been discussed and questions answered. Patient agrees to proceed with procedure. Chief complaint: Melena Narrative: Anali Luz is a 84 year old female here for colonoscopy, last one about 6-7 years ago, 2023 had negative cologuard, recently noted blood in stool Review of Systems Review of Systems: All systems reviewed & are unremarkable except as noted in HPI and below PMFSH Past Medical History Medical History Breast CA Cancer Osteoporosis Family History Family History Other Alcohol abuse Cerebrovascular accident Depression Heart disease Hypertension Social History Social History Social History: Caffeine- coffee Smoking status: Never smoker Second hand tobacco smoke exposure: No Alcohol intake: never Substance use: never Substance use type: does not use Lack of Transportation: No Lack of Food: Never True Current Housing: I Have Housing Concerned About Future Housing: No Difficulty Paying Gas/Electric Bills: No Difficulty Paying for Meds: No Currently Unemployed: No Difficulty w/ Childcare or Family Care: No Living arrangements: with family Occupation/Education: retired Gender identity (if verbalized by the patient): Female Sexual Orientation (if Verbalized by the Patient): Straight or Heterosexual Spiritual care concerns: No Meds Home Medications and Allergies Home Medications ?Medication ?Instructions ?Recorded ?Confirmed ?Type clobetasol 0.05 % scalp solution topical PRN Dry Scalp 11/27/24 11/29/24 History clobetasol 0.05 % shampoo topical PRN Dry Scalp 11/27/24 11/29/24 History clobetasol 0.05 % topical cream 1 applic topical DAILY PRN Dry 11/27/24 12/01/24 History Scalp mupirocin 2 % topical ointment 1 applic topical BID PRN Dry Scalp 11/27/24 12/01/24 History nitrofurantoin PO 11/27/24 11/29/24 History monohydrate/macrocrystals 100 mg capsule Allergies Allergy/AdvReac Type Severity Reaction Status Date / Time No Known Allergies Allergy Verified 12/09/24 08:18 Vital Signs Vital Signs - 24 hr 12/09/24 08:20 Temperature 97.2 F L Pulse Rate 76 Respiratory Rate 16 Blood Pressure 125/67 Pulse Oximetry 99 Oxygen Delivery Room Air Exam Const: General: comfortable and no acute distress HENMT: Face/Nose/Sinus: Normal nares present Resp: Auscultation: clear to auscultation bilaterally Cardio: Rate: regular rate Rhythm: regular rhythm GI: Inspection: non-distended GI Palp: Yes Soft to palpation Extrem: General: normal to inspection Psych: Mental Status: mental status grossly normal Assessment and Plan Assessment and plan (1) Blood in stool: Code(s): K92.1 - Melena Status: Acute Assessment and Plan: colonoscopy
[2024-12-09 09:12] VITALS: BP 105/60; PULSE 67; RESP 15; O2SAT 99
[2024-12-09 09:22] VITALS: BP 103/65; PULSE 67; RESP 20; O2SAT 98
[2024-12-09 09:32] VITALS: BP 116/70; PULSE 70; RESP 20; O2SAT 98
== END 2024-12-09 09:45 | disposition home or self-care (01) ==
PROVIDERS: PCP Family Medicine; Referring Provider Student in an Organized Health Care Education/Training Program; Visit Provider Internal Medicine Gastroenterology
PROC: 0DJD8ZZ Inspection of Lower Intestinal Tract, Via Natural or Artificial Opening Endoscopic (ICD-10-PCS; CPT 45378; principal; 2024-12-09 09:00)
DX: K64.8 Other hemorrhoids (principal); K57.30 Diverticulosis of large intestine without perforation or abscess without bleeding; M81.0 Age-related osteoporosis without current pathological fracture; Z85.3 Personal history of malignant neoplasm of breast; Z82.49 Family history of ischemic heart disease and other diseases of the circulatory system
CPT/HCPCS: 45378; J2704; J7120

== ENCOUNTER 2025-01-04 09:18 | Outpatient (CLI) | payer MEDICARE, SELFPAY ==
--- NOTE | ~2025-01-04 | NM_ITS ---
EXAMINATION: NM maverick stress w perfusion DATE: 01/04/2025 12:38 INDICATION: Fatigue. Heartburn. TECHNIQUE: Rest images were obtained following intravenous administration of 11.9 mCi Tc99m tetrofosmin (Myoview). The patient was infused intravenously with Lexiscan (Regadenoson). Then, 33 mCi Tc99m tetrofosmin (Myoview) was administered intravenously, and stress images were obtained. Data was recons tructed into short axis and horizontal and vertical long axis SPECT images. Gated SPECT images were also obtained. COMPARISON: None. FINDINGS: Small region of equivocal for mild reversible ischemia centered at the junction of the apical lateral and mid anterolateral and inferolateral segments. There is normal left ventricular chamber size, wall motion and ejection fraction. Left ventricular ejection fraction measures 69%. IMPRESSION: 1. Equivocal small region of mild reversible ischemia in the circumflex coronary artery vascular distribution. 2. Left ventricular ejection fraction measuring 69%. Reviewed, dictated and finalized at location A. RT/EXPORT AGENT IMPRESSION: 1. Equivocal small region of mild reversible ischemia in the circumflex coronar y artery vascular distribution. 2. Left ventricular ejection fraction measuring 69%.
--- NOTE | 2025-01-04 09:44 | EST_ITS ---
Patient Info Name: Anali Luz Age: 84 years : 1940 Gender: Female Ht: 63 in Wt: 130 lbs BSA: 1.63 m2 HR: 69 bpm BP: 143 / 83 mmHg Exam Date: 01/04/2025 9:44 AM Patient Status: O Admit Date: 01/04/2025 Exam Type: CA stress maverick w NM A regadenoson stress test was performed. Staff Referring Physician: Alvarado Dominguez Attending Provider: Alvarado Dominguez Exercise Technologist: Philip Thompson DO Exercise Physician: Philip Thompson DO Summary 1. 1. Negative lexiscan stress test for ischemic ST changes by ECG criteria. 2. 2. Stable hemodynamics throughout the test. 3. 3. Nuclear scan to follow and will be reported separately. Please correlate with it. 4. 4. Patient informed of the above results. Protocol: Lexiscan Stress ECG Details Stage: REST Duration (min): 1 min : 18 sec HR (bpm): 67 SBP (mmHg): 143 DBP (mmHg): 83 Stage: REST Duration (min): 6 min : 9 sec HR (bpm): 69 SBP (mmHg): 143 DBP (mmHg): 83 Stage: STAGE 1 Duration (min): 1 min : 0 sec HR (bpm): 82 SBP (mmHg): 132 DBP (mmHg): 90 Stage: RECOVERY Duration (min): 1 min : 0 sec HR (bpm): 95 SBP (mmHg): 132 DBP (mmHg): 90 Stage: RECOVERY Duration (min): 2 min : 0 sec HR (bpm): 90 SBP (mmHg): 132 DBP (mmHg): 90 Stage: RECOVERY Duration (min): 3 min : 0 sec HR (bpm): 92 SBP (mmHg): 141 DBP (mmHg): 83 Stage: RECOVERY Duration (min): 4 min : 0 sec HR (bpm): 89 SBP (mmHg): 141 DBP (mmHg): 83 Stage: RECOVERY Duration (min): 4 min : 12 sec HR (bpm): 89 SBP (mmHg): 141 DBP (mmHg): 83 Rest HR: 69 bpm Peak HR: 95 bpm Rest Sys BP: 143 mmHg Peak Sys BP: 141 mmHg Max Pred HR: 138 bpm % Max Pred HR: 69 % Target HR: 117 bpm Max RPP: 13,395 bpm*mmHg Termination Reason: Completed protocol Cardiac Symptoms: Shortness of breath Total Time: 1 min : 0 sec Rest Joseph BP: 83 mmHg Peak Joseph BP: 83 mmHg Total Dose: 0.4 mg Resting ECG Sinus rhythm. Stress ECG No ST changes. Arrhythmias None. Report Signatures
--- OUTSIDE RECORDS SUMMARY | 2025-01-04 09:50 | XMS_ITS | Clinical Summary ---
Author Organization [facility] at the [facility] Address [address] [place] [address] Care Team Providers Care Technology Recruiter Name Role Phone Carlin Dolan MD Primary Care Provider [phone] Allergies No known active allergies Medications No [...] Visit 65+ 07/25/2007 Covid-19 Vaccine (3 - 2024- season) 2024, 04/07/2021 Influenza Vaccine (#1) 2024 3, 03/09/2022, 12/27/2020 Insurance [employer] [facility] MEDICARE ADVANTAGE Care Teams Technology Recruiter Relationship Specialty Start Date End Date Carlin Dolan MD [address] [place] [address] [place], [place] [id number] PCP - General Family Medicine 10/15/23
== END 2025-01-04 09:19 | disposition home or self-care (01) ==
PROVIDERS: PCP Family Medicine; Visit Provider Student in an Organized Health Care Education/Training Program
DX: R06.09 Other forms of dyspnea (principal)
CPT/HCPCS: 78452; 93017; A9502; J2785

== ENCOUNTER 2025-02-23 08:05 | Outpatient (CLI) | payer MEDICARE, SELFPAY ==
--- NOTE | ~2025-02-23 | MM_ITS ---
EXAMINATION: MM screening javad LT w lela HISTORY: Screening. Right mastectomy TECHNIQUE: Craniocaudal and mediolateral oblique 3-D tomosynthesis images were obtained and synthetic 2-D images were generated. CAD analysis was submitted and interpreted. COMPARISON: 2023 and 2022 BREAST PARENCHYMAL COMPOSITION: Dense: The breasts are heterogeneously dense, which may obscure small masses. FINDINGS: No suspicious masses are seen. There are no suspicious calcifications. No unexplained architectural distortion is seen. There are no skin or nipple abnormalities identified. There is no adenopathy seen on the images submitted. IMPRESSION: No mammographic evidence to suggest malignancy is seen. The patient may return to screening mammography as per ACR guidelines. BI-RADS 1 - Negative. Reviewed, dictated and finalized at location C. THOLOGY TEACHER
--- OUTSIDE RECORDS SUMMARY | 2025-02-23 08:09 | XMS_ITS | Clinical Summary ---
Author Organization [facility] at the [facility] Address [address] [place] [address] Care Team Providers Care Cross Country Coach Name Role Phone Carlin Dolan MD Primary Care Provider [phone] Allergies No known active allergies Medications No [...] Vaccine (#1) 2024 3, 03/09/2022, 12/27/2020 Insurance [facility] MEDICARE ADVANTAGE [facility] Address: [facility] [address] [place] [address] Care Teams Cross Country Coach Relationship Specialty Start Date End Date Carlin Dolan MD [address] [address] [place] [address] [place], [place] [id number] PCP - General Family Medicine 10/15/23
== END 2025-02-23 08:06 | disposition home or self-care (01) ==
PROVIDERS: PCP Family Medicine; Visit Provider Student in an Organized Health Care Education/Training Program
DX: Z12.31 Encounter for screening mammogram for malignant neoplasm of breast (principal)
CPT/HCPCS: 77063; 77067